=== PATIENT | female | born 1950 | race Caucasian/White ===

== ENCOUNTER 2024-08-29 11:54 | Day surgery (SDC) | payer MEDICARE, BC ==
[~2024-08-29] VITALS: Ht 165.1 cm; Wt 90.1 kg
[~2024-08-29 11:54] MED LIST: Lactated Ringer's 1,000 ML IV ONE
[2024-08-29] MEDS ORDERED: CeFAZolin Sodium 2,000 MG VIAL ONE (12:28)
[2024-08-29] MEDS ORDERED: NS 50 ML IV ONE (12:29)
[2024-08-29] MEDS ORDERED: MULVITA PO (12:37)
[2024-08-29] MEDS ORDERED: CALCIUM 500 MG1 EAC2 PO (12:37)
[2024-08-29] MEDS ORDERED: MAGNESIUM OXID500 MG PO (12:38)
[2024-08-29] MEDS ORDERED: GLUCHON PO (12:38)
[2024-08-29] MEDS ORDERED: POTA10T PO (12:39)
[2024-08-29] MEDS ORDERED: Lactated Ringer's 1,000 ML IV ONE (12:44)
[2024-08-29] MEDS ORDERED: Lidocaine HCl/Pf 1% 5 ML VIAL ONE (13:22)
--- NOTE | 2024-08-29 13:38 | NUR ---
08/29/24 1338 Adolfo Morrow, BLOCK TIMEOUT AT 1327 BLOCK STARTED 1329 7CC LIDOCAINE ON WRIST 1330 3CC LIDOCAINE ON PALM 1331 FINISHED AT 1331
[2024-08-29 14:16] VITALS: BP 163/71
== END 2024-08-29 14:50 | disposition home or self-care (01) ==
LOC: ORSCSDS 11:54
PROVIDERS: Orthopaedic Surgery
PROC: 01N50ZZ Release Median Nerve, Open Approach (ICD-10-PCS; principal; 2024-08-29 13:40)
PROC: 3E0T3BZ Introduction of Anesthetic Agent into Peripheral Nerves and Plexi, Percutaneous Approach (ICD-10-PCS; principal; 2024-08-29 13:40)
DX: G56.01 Carpal tunnel syndrome, right upper limb (principal)
CPT/HCPCS: J0690; J2003; J7120